=== PATIENT | female | born 1995 | race Two or more races ===

== ENCOUNTER 2021-04-19 00:37 | Emergency (ER) | payer MEDICAID ==
[~2021-04-19] VITALS: Ht 147.3 cm; Wt 45.9 kg
[2021-04-19] MEDS ORDERED: ONDANSETRON 2MG/ML, 2ML ONE (02:48)
[2021-04-19 02:55] LABS: BASOPHILS % (AUTO) 0 % (0-1); EOSINOPHILS % (AUTO) 0 % (1-7); LYMPHOCYTES % (AUTO) 6 % (22-44); MEAN CORPUSCULAR HEMOGLOBIN 29.6 pg (27.0-34.8); MEAN CORPUSCULAR HGB CONC 33.4 g/dL (32.4-35.8); MEAN PLATELET VOLUME 7.8 fL (7.4-10.4); MONOCYTES % (AUTO) 5 % (2-9); NEUTROPHILS % (AUTO) 89 % (42-75); PLATELET COUNT 321 x10^3/uL (130-400); RED BLOOD COUNT 5.59 x10^6/uL (3.82-5.3); RED CELL DISTRIBUTION WIDTH 12.9 % (9.6-15.2)
--- NOTE | 2021-04-19 02:55 | NUR ---
pt c/o of abd pain in all quadrants since 0600 yesterday. pt states vomitting stomach acid pt states this happens once a month for last year. denies diarrhea, sob, cp attached to monitors. vss. gil. bf at bedside bed in low positon, rails engaged. call light on lap.
[2021-04-19] MEDS ORDERED: SODIUM CHLORIDE 0.9% 1,000ML IVBOLUS ONE (03:00)
[2021-04-19] MEDS ORDERED: ONDANSETRON 2MG/ML, 2ML IVPush ONE (03:00)
[2021-04-19 03:10] LABS: ALBUMIN 4.2 g/dL (3.4-5.0); ANION GAP 7 mmol/L (5-15); CALCIUM 9.7 mg/dL (8.5-10.1); CHLORIDE 103 mmol/L (98-107)
[2021-04-19 03:13] LABS: ALANINE AMINOTRANSFERASE 63 U/L (12-78); ALKALINE PHOSPHATASE 47 U/L (45-117); BILIRUBIN,TOTAL 0.5 mg/dL (0.2-1.0); TOTAL PROTEIN 8.6 g/dL (6.4-8.2)
[2021-04-19] MEDS ORDERED: METOCLOPRAMIDE 5 MG/ML, 2ML ONE (04:17)
[2021-04-19] MEDS ORDERED: MAALOX/HYOSCYAMINE/LIDOCAINE 45 ML BTL ONE (04:18)
[2021-04-19] MEDS ORDERED: POTASSIUM CHLORIDE 20 MEQ TAB.ER.PRT ONE (04:18)
--- NOTE | 2021-04-19 04:21 | NUR ---
PT RESTING ON GURNEY RESP EVEN AND UNLABORED. ERASTO YANES PT VOMITTING 20 MINUTES MEDIUM CLEAR MUCOUS. CALL LIGHT ON LAP. NO NEEDS AT THIS TIME.
[2021-04-19] MEDS ORDERED: POTASSIUM CHLORIDE 20 MEQ TAB.ER.PRT PO ONE (04:30)
[2021-04-19] MEDS ORDERED: METOCLOPRAMIDE 5 MG/ML, 2ML IVPush ONE (04:30)
[2021-04-19] MEDS ORDERED: MAALOX/HYOSCYAMINE/LIDOCAINE 45 ML BTL PO ONE (04:30)
[2021-04-19 06:07] VITALS: BP 97/65
--- NOTE | 2021-04-19 06:27 | NUR ---
Patient/Caregiver given discharge instructions and they have confirmed that they understand the instructions. Patient ambulatory with steady gait. NAD, all questions answered appropriately, denies additional needs at this time. No personal belongings left in room after discharge.
== END 2021-04-19 06:28 | disposition home or self-care (01) ==
LOC: ED 05:36
DX: R11.2 Nausea with vomiting, unspecified (principal); R10.13 Epigastric pain; F12.10 Cannabis abuse, uncomplicated
CPT/HCPCS: 36415; 80053; 83690; 84703; 85025; 96361; 96374; 96375; 99285; J2405; J2765; J7030